=== PATIENT | female | born 1945 | race Two or more races ===

== ENCOUNTER 2017-09-28 08:00 | Outpatient (CLI) | payer OTHER | END 2017-09-28 08:14 | disposition home or self-care (01) | LOC: MAMO-SONO 08:00 | DX: Z12.31 Encounter for screening mammogram for malignant neoplasm of breast (principal); Z87.898 Personal history of other specified conditions; N63.10 Unspecified lump in the right breast, unspecified quadrant; N63.20 Unspecified lump in the left breast, unspecified quadrant ==

== ENCOUNTER 2018-07-30 09:46 | Outpatient (CLI) | payer OTHER | END 2018-07-30 09:53 | disposition home or self-care (01) | LOC: SONOGRAMA 09:46 | DX: E04.2 Nontoxic multinodular goiter (principal) ==

== ENCOUNTER → 2018-10-15 | Outpatient (CLI) | payer OTHER | END | disposition home or self-care (01) | LOC: MAMO-SONO 07:11 | DX: N60.19 Diffuse cystic mastopathy of unspecified breast (principal); Z12.31 Encounter for screening mammogram for malignant neoplasm of breast; Z87.898 Personal history of other specified conditions ==

== ENCOUNTER 2019-04-18 07:30 | Outpatient (CLI) | payer OTHER | END 2019-04-18 07:32 | disposition home or self-care (01) | LOC: SONOGRAMA 07:30 → MAMO-SONO 08:15 | DX: N60.19 Diffuse cystic mastopathy of unspecified breast (principal) ==

== ENCOUNTER 2020-04-19 09:21 | Outpatient (CLI) | payer OTHER | END 2020-04-19 09:34 | disposition home or self-care (01) | LOC: MAMO-SONO 09:21 | PROVIDERS: ATTEND Specialist | DX: D24.1 Benign neoplasm of right breast (principal); Z12.31 Encounter for screening mammogram for malignant neoplasm of breast; N64.59 Other signs and symptoms in breast ==

== ENCOUNTER 2021-06-06 07:41 | Outpatient (CLI) | payer OTHER | END 2021-06-06 07:44 | disposition home or self-care (01) | LOC: SONOGRAMA 07:41 | PROVIDERS: ATTEND Pathology Anatomic Pathology & Clinical Pathology | DX: D34 Benign neoplasm of thyroid gland (principal); E04.8 Other specified nontoxic goiter ==